=== PATIENT | female | born 1995 | race Hispanic/Latino ===

== ENCOUNTER 2018-11-11 21:06 | Emergency (ER) | payer OTHER ==
[~2018-11-11] VITALS: Ht 154.9 cm; Wt 57.6 kg
== END 2018-11-11 22:50 | disposition home or self-care (01) ==
LOC: FSED 21:06
DX: R50.9 Fever, unspecified (principal); R11.2 Nausea with vomiting, unspecified; R19.7 Diarrhea, unspecified; K52.9 Noninfective gastroenteritis and colitis, unspecified
CPT/HCPCS: 99282

== ENCOUNTER 2020-01-02 17:09 | Emergency (ER) | payer OTHER ==
[~2020-01-02] VITALS: Ht 154.9 cm; Wt 57.6 kg
--- OUTSIDE RECORDS SUMMARY | 2020-01-02 17:11 | XMS REPORT ---
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 Allergies, Adverse Reactions, Alerts Allergy Name Allergy Type Status Severity Reaction(s) Onset Date Inacti ve Date Treating Clinician Comments Penicillin Allergy to Substance Active Severe ANAPHYLAXIS 2018-11-11 0 0:00:00 Azithromycin Allergy to Substance Active Moderate RASH 2018-11-11 00 :00:00 Medications This patient has no known medications. Encounters Start Date/Time End Date/Time Encounter Type Admission Type [facility] Care Department Encounter ID 2018-11-11 21:06:00 2018-11-11 22:50:00 Departed Emergency Room [facility] [id number]
== END 2020-01-02 17:42 | disposition home or self-care (01) ==
LOC: ER 17:09
DX: Z04.1 Encounter for examination and observation following transport accident (principal); V43.52XA Car driver injured in collision with other type car in traffic accident, initial encounter; Y92.488 Other paved roadways as the place of occurrence of the external cause; Z33.1 Pregnant state, incidental
CPT/HCPCS: 99282

== ENCOUNTER 2022-10-18 23:09 | Emergency (ER) | payer OTHER ==
[~2022-10-18] VITALS: Ht 154.9 cm; Wt 57.6 kg
[2022-10-19 00:13] LABS: CLARITY,URINE CLOUDY (CLEAR); COLOR,URINE YELLOW (YELLOW); KETONES,URINE NEGATIVE (NEGATIVE); LEUKOCYTE ESTERASE ,URINE TRACE (NEGATIVE); NITRITE,URINE NEGATIVE (NEGATIVE); PROTEIN,URINE DIPSTICK NEGATIVE (NEGATIVE); URINE UROBILINOGEN 0.2 mg/dL (0.2 - 1)
[2022-10-19 00:44] LABS: BACTERIA,URINE MANY /HPF; EPITHELIAL CELLS,URINE MANY /LPF; TRANSITIONAL EPI CELLS,URINE FEW
[2022-10-19] MEDS ORDERED: KETOROLAC TROMETHAMINE 60 MG/2 ML VIAL IM ONE (01:00)
[2022-10-19] MEDS ORDERED: KETOROLAC TROMETHAMINE 60 MG/2 ML VIAL ONE (01:07)
[2022-10-19] MEDS ORDERED: CEFDINIR300 MG PO (01:48)
[2022-10-19] MEDS ORDERED: PYRIDIUM200 MG PO (01:48)
[2022-10-19 02:01] VITALS: BP 117/93
== END 2022-10-19 02:00 | disposition home or self-care (01) ==
LOC: ER 23:12
DX: R10.32 Left lower quadrant pain (principal); N39.0 Urinary tract infection, site not specified
CPT/HCPCS: 74176; 81001; 81025; 99283; J1885